=== PATIENT | female | born 1930 | race Caucasian/White ===

== ENCOUNTER 2018-09-11 09:20 | Outpatient (CLI) | payer OTHER, MEDICARE ==
[~2018-09-11] VITALS: Ht 165.1 cm; Wt 51.0 kg
[2018-09-11] VITALS (13 sets, daily range): BP systolic 118–158; BP diastolic 72–86
[2018-09-11 10:00] LABS: HEMOGLOBIN 14.2 G/DL (11.5-16.0); MEAN PLATELET VOLUME 10.3 FL (7.4-10.4); RED CELL DISTRIBUTION WIDTH 13.3 % (10.0-14.5)
[2018-09-11] MEDS ORDERED: NS IV 1000 ML 1,000 ML IV STA (10:10)
[2018-09-11 10:15] LABS: INR 1.1 (0.8-1.4); PROTHROMBIN TIME PATIENT 14.8 SEC (12.2-14.7)
[2018-09-11] MEDS ORDERED: fentaNYL INJECTION 100 MCG/2 ML AMP IVP ONE (10:15)
[2018-09-11] MEDS ORDERED: MIDAZOLAM 2 MG/2 ML (VERSED) VIAL IVP ONE (10:15)
[2018-09-11] MEDS ORDERED: LIDOCAINE 1% INJ 20 ML 20 ML VIAL INJ ONE (10:15)
--- NOTE | 2018-09-11 10:45 | NUR ---
PATIENT LEFT WITH FAHAD SMITH TO GO FOR PROCEDURE. WILL WAIT FOR PATIENT TO RETURN TO [facility] – [place], [place] [address][id number].
[2018-09-11] MEDS ORDERED: HYDROcodone/APAP 5 MG/325 MG (LORTAB) TAB PO PRN (11:45)
--- NOTE | 2018-09-11 12:12 | Pre-Op Note & Conscious Sedat ---
Pre-Operative Progress Note H&P Reviewed The H&P was reviewed, patient examined and no changes noted. Date H&P Reviewed: Sep 11, 2018 Time H&P Reviewed: 09:00 Pre-Op Diagnosis: Liver mass Conscious Sedation Pre-Proced Time 09:00 ASA Score 2 For ASA 3 and 4: Consider anesthesia and medical clearance. Also, for patients with a history of failed moderate sedation consider anesthesia. Airway Lungs Heart ASA score ASA 1: a normal healthy patient ASA 2: a patient with a mild systemic disease (mid diabetes, controlled hypertension, obesity ASA 3: a patient with a severe systemic disease that limits activity (angina , COPD, prior Myocardial infarction) ASA 4: a patient with an incapacitating disease that is a constant threat to life (CHF, renal failure) ASA 5: a moribund patient not expected to survive 24 hrs. (ruptured aneurysm) ASA 6: a declared brain- patient whose organs are being harvested. For emergent operations, add the letter E after the classification Mallampati Classification Grade 2 Sedation Plan Analgesia, Amnesia, Plan communicated to team members, Discussed options with patient/fam, Discussed risks with patient/fam The patient is an appropriate candidate to undergo the planned procedure, sedation, and anesthesia. The patient immediately re-assessed prior to indication. MOON AGUILAR MD Sep 11, 2018 12:12
[2018-09-11] MEDS ORDERED: HYDR-3812 PO (12:40)
[2018-09-11] MEDS ORDERED: RISE150T PO (12:40)
[2018-09-11] MEDS ORDERED: ZOLP12.546 PO (12:40)
[2018-09-11] MEDS ORDERED: LEVO100T7 PO (12:40)
--- NOTE | 2018-09-11 12:46 | Diagnostic Imaging Report ---
Indication: Liver mass. Patient presents for CT-guided biopsy. The patient was brought to the CT suite and placed on table in the supine position. Axial imaging was performed through the abdomen to evaluate appropriate entry site. The procedure was performed utilizing conscious sedation with radiology nursing and constant patient monitoring. Patient was administered a total of 50 mcg of fentanyl intravenously. Procedure time 7 minutes. The right abdomen was prepped and draped in usual sterile fashion. Small amount of 1% lidocaine was utilized for local anesthesia. An 18-gauge coaxial Temno needle was advanced and placed with its tip within the low-density dominant lesion in the right lobe of the liver. 4 core biopsies were obtained. Needle was withdrawn and hemostasis was obtained using manual compression. Patient tolerated the procedure well and left the department in stable condition. Followup imaging is without complicating features. Impression: CT-guided liver biopsy utilizing conscious sedation. Pathology results are currently pending. Dictated by: Dictated on workstation # [id number]
== END 2018-09-11 15:30 ==
LOC: SDC 09:20
PROVIDERS: ATTEND Family Medicine
DX: C22.8 Malignant neoplasm of liver, primary, unspecified as to type (principal)
CPT/HCPCS: 36415; 36430; 77012; 85027; 85610; 85730